=== PATIENT | female | born 1970 | race Caucasian/White ===

== ENCOUNTER 2017-02-20 17:26 | Inpatient (IN) | payer OTHER, MEDICAID ==
[2017-02-20] MEDS ORDERED: NS 1,000 ML IV ONE (17:37)
--- NOTE | 2017-02-20 17:44 | EDPHY ---
H & P Time Seen by Provider: 02/20/17 17:32 HPI/ROS: CHIEF COMPLAINT: Altered mental status HISTORY OF PRESENT ILLNESS: The patient is a 46-year-old female who is brought by EMS for decreased mental status. She has a history of poorly-controlled diabetes she is on metformin and Glucophage. She was somnolecent and found to have a glucose in the 20s. Her mental status improved after an amp of D50 and her the most recent blood glucose was 60. She is afebrile. According to EMS she lives in a recliner on her patio. She has been sitting in feces and has a stage II decubitus ulcer to her left hip. She also complains that she needs to urinate. She denies being in any pain but also answers inappropriately to most questions. She is oriented to person but not place or time. REVIEW OF SYSTEMS: Unable to obtain secondary to condition EXAM: GENERAL: Confused, obese HEAD: Atraumatic, normocephalic. EYES: Pupils equal round and reactive to light, extraocular movements intact, sclera anicteric, conjunctiva are normal. ENT: TMs normal, nares patent, oropharynx clear without exudates. Moist mucous membranes. NECK: Normal range of motion, supple without lymphadenopathy or JVD. LUNGS: Breath sounds clear to auscultation bilaterally and equal. No wheezes rales or rhonchi. HEART: Regular rate and rhythm without murmurs, rubs or gallops. ABDOMEN: Soft, nontender, normoactive bowel sounds. No guarding, no rebound. No masses appreciated. BACK: No CVA tenderness, no spinal tenderness, step-offs or deformities EXTREMITIES: Normal range of motion, no pitting or edema. No clubbing or cyanosis. NEUROLOGICAL: Cranial nerves II through XII grossly intact. Normal speech, normal gait. 5/5 strength, normal movement in all extremities, normal sensation PSYCH: Pleasant SKIN: Healing chronic wound to left foot, states she decubitus left hip Source: Patient Exam Limitations: No limitations - Medical/Surgical History Hx Asthma: No Hx Chronic Respiratory Disease: No Hx Diabetes: Yes Hx Cardiac Disease: No Hx Renal Disease: No Other PMH: Hypertension, chronic pain - Family History Significant Family History: No pertinent family hx - Social History Smoking Status: Former smoker Alcohol Use: Sober Drug Use: None Constitutional: Initial Vital Signs Temperature (C) 36.8 C 02/20/17 17:53 Heart Rate 94 02/20/17 17:53 Respiratory Rate 16 02/20/17 17:53 Blood Pressure 172/102 H 02/20/17 17:53 O2 Sat (%) 98 02/20/17 17:53 O2 Delivery Mode Nasal Cannula O2 (L/minute) 2 Allergies/Adverse Reactions: No Known Allergies Allergy (Unverified 02/20/17 21:39) Home Medications: Medication Instructions Recorded Lisinopril [Zestril 20 mg (*)] 20 mg PO DAILY 02/20/17 Metformin HCl [Metformin 1000 mg] 1,000 mg PO BID 02/20/17 glyBURIDE [Glyburide] 5 mg PO DAILY 02/20/17 Medical Decision Making ED Course/Re-evaluation: In reviewing her medications we found that her 15 mg morphine IR bottle was empty. It was filled on March 15 of this year with 120 tablets. 6:20 p.m. after cleaning the patient up she has several other stage 2-3 decubitus ulcers to her sacrum. 7:20 p.m. the patient's family seem surprised that her morphine IR bottle is empty. They state that it could be in the pill distribution box however the other pill bottles are full. It sounds as though the person who typically gives her her medications as been in penitentiary for the last 2 days. Also the patient continues to be confused. She is definitely alert and interactive but is now accusing the nursing staff a being mean to her and making her cold. She then accused me of being mean to her, giving her a purple pill and spanking her. The patient's family thought this was funny. I had to ask them to be series for moment and spoke about her hypoglycemia, potential opiate abuse or overdose or other causes for altered mental status including her decubitus ulcers covered in feces. I then spoke with Dr. Marcia Pascual who will admit to the hospitalist service. The patient may have a sulfonylurea overdose however her recent glucoses have been within normal limits in even increasing prior to treatment. I will start her on an antibiotic. She does not meet sepsis criteria. Differential Diagnosis: Partial list of the Differential diagnosis considered include but were not limited to; hypoglycemia, sulfonaurea overdose, morphine overdose, sepsis and although unlikely based on the history and physical exam, I also considered pneumonia, CVA, intracranial hemorrhage. Critical Care Time: Critical care time spent by me, Dr. Boggs exclusive with this patient was 45 minutes, exclusive of the PA time exclusive of procedures. The organ system that was at risk was cardiovascular and I gave IV fluids, glucose monitoring, admission, testing and discussions with family to prevent worsening of the patient's condition - Data Points Laboratory Results: Laboratory Results 02/20/17 17:49 02/20/17 17:49 Medications Given: Discontinued Medications Dextrose (D10w) 1,000 mls @ 100 mls/hr IV CONT SADIA Stop: 08/19/17 17:44 Last Admin: 02/20/17 19:19 Dose: Not Given Sodium Chloride (Ns) 1,000 mls @ 0 mls/hr IV ONCE ONE; Wide Open PRN Reason: Protocol Stop: 02/20/17 17:38 Last Admin: 02/20/17 18:49 Dose: 1,000 mls Dextrose (D5w) 250 mls @ 0 mls/hr IV ONCE ONE PRN Reason: Wide Open Stop: 02/20/17 18:31 Last Admin: 02/20/17 18:30 Dose: 250 mls Departure - Departure Disposition: [facility] Inpatient Acute Clinical Impression: Hypoglycemia Decubitus ulcer Qualifiers: Pressure ulcer location: sacral region Pressure ulcer stage: stage 2 Qualified Code(s): L89.152 - Pressure ulcer of sacral region, stage 2 Altered mental status Qualifiers: Altered mental status type: disorientation Qualified Code(s): R41.0 - Disorientation, unspecified Failure to thrive Qualifiers: Failure to thrive age range: in adult Qualified Code(s): R62.7 - Adult failure to thrive Condition: Fair
[2017-02-20] MEDS ORDERED: D10W 1,000 ML IV SCH (17:45)
[2017-02-20 17:54] LABS: % IMMATURE GRANULYOCYTES 0.9 % (0.0-1.1); ABSOLUTE IMMATURE GRANULOCYTES 0.12 10^3/uL (0.00-0.10); ABSOLUTE NRBC COUNT 0.02 10^3/uL (0-0.01); ADD DIFF? NO; ADD MORPH? NO; ADD SCAN? NO; ATYPICAL LYMPHOCYTE FLAG 0 (0-99); FRAGMENT RBC FLAG 0 (0-99); HEMATOCRIT 43.3 % (38.0-47.0); LEFT SHIFT FLG 0 (0-99); LIPEMIA HEMOLYSIS FLAG 80 (0-99); MEAN CELL HEMOGLOBIN 30.2 pg (27.9-34.1); MEAN CELL HEMOGLOBIN CONCENTR. 32.3 g/dL (32.4-36.7); MEAN CELL VOLUME 93.5 fL (81.5-99.8); MEAN PLATELET VOLUME 10.6 fL (8.7-11.7); NRBC-AUTO% 0.2 % (0.0-0.2); PLATELET CLUMPS FLAG 0 (0-99); PLATELET COUNT 264 10^3/uL (150-400); RED BLOOD CELL COUNT 4.63 10^6/uL (4.18-5.33); RED CELL DISTRIBUTION WIDTH 15.8 % (11.5-15.2)
[2017-02-20 18:03] LABS: ANION GAP 8 mEq/L (8-16); BILIRUBIN,TOTAL 0.5 mg/dL (0.1-1.4); CALCIUM 8.8 mg/dL (8.5-10.4); CARBON DIOXIDE 24 mEq/l (22-31); CHLORIDE 105 mEq/L (97-110); CREATININE 0.7 mg/dL (0.6-1.0); GLOMERULAR FILTRATION RATE > 60; GLUCOSE 135 mg/dL (70-100); POTASSIUM 4.7 mEq/L (3.5-5.2); SODIUM 137 mEq/L (134-144)
[2017-02-20 18:04] LABS: APTT 27.7 SEC (23.0-38.0); INR 0.99 (0.83-1.16)
[2017-02-20] MEDS ORDERED: D5W 250 ML IV ONE (18:30)
[2017-02-20 18:47] LABS: COLOR YELLOW; LEUKOCYTE ESTERASE,URINE NEGATIVE (NEGATIVE); NITRITE,URINE NEGATIVE (NEGATIVE)
[2017-02-20] MEDS ORDERED: ONDANSETRON DISINTEGRATING 4 MG TAB PO PRN (23:33)
[2017-02-20] MEDS ORDERED: ACETAMINOPHEN 325 MG TAB PO PRN (23:33)
[2017-02-20] MEDS ORDERED: ONDANSETRON 4 MG/2 ML VIAL IVP PRN (23:33)
[2017-02-20] MEDS ORDERED: NS 1,000 ML IV SCH (23:45)
--- NOTE | 2017-02-21 00:45 | GHP ---
[f rep st] HISTORY AND PHYSICAL DATE OF ADMISSION: 02/20/2017 CHIEF COMPLAINT: Altered mental status. HISTORY OF PRESENT ILLNESS: This is a 46-year-old female who is quite confused, and so history is o btained from chart. Apparently, she has also not been to this hospital before. She has a history o f type 2 diabetes, and is on metformin and sulfonylurea. She was found to be somnolent today, with a glucose in the 20s. Her mental status improved, although she is still fairly confused. According to her EMS, she lives in a recliner on her patio, and has been sitting in feces, and had a decubitu s ulcer to her left hip. My interview, she answered no to almost every single question, and is not able to elaborate on any questions. She is not oriented. Apparently, she is also on MS Contin, and an empty bottle was found that was just recently filled a week ago. Apparently, the person who giv es her that medication has been in longterm. PAST MEDICAL HISTORY: Type 2 diabetes, hypertension, some type of chronic pain syndrome. SOCIAL HISTORY: Unknown. FAMILY HISTORY: Unknown. PHYSICAL EXAM: VITAL SIGNS: Afebrile. Blood pressure is 115/79, heart rate in the 90s, oxygen sat uration 96% on room air. GENERAL: The patient is well developed, no apparent distress. HEENT: No nicteric sclerae. Extraocular muscles intact. Moist mucous membranes. NECK: Supple. No thyromeg simone. LUNGS: Good effort. Clear to auscultation bilaterally. CARDIOVASCULAR: Regular rate and rh ythm. No murmurs, gallops. ABDOMEN: Positive bowel sounds. Soft, nontender, nondistended. No he patosplenomegaly. EXTREMITIES: No clubbing, cyanosis, or edema. SKIN: Without rash, are intact. NEUROLOGIC: Awake, but is not answering questions appropriately, is moving all 4 extremities equal ly. LABORATORIES: White blood cell count is 13. Lactic acid is normal. Chemistry is normal. UA does not show infection. Chest x-ray is personally reviewed and interpreted, shows no pneumonia. ASSESSMENT: This is a 46-year-old female presenting with encephalopathy of uncertain etiology. PLAN: 1. Altered mental status. I suspect this is medication related. There are no signs of infection a t this time. We will watch her overnight, and see what her mental status does in the morning. 2. Hypoglycemia. This is likely due to her sulfonylurea. We will hold her diabetic medications, a nd monitor her blood sugars. 3. Questionable chronic pain. I am not sure why she is on MS Contin. 4. Sacral decubitus ulcer. We will have Wound Care see the patient. /[id number]/MODL
[2017-02-21 05:51] LABS: % IMMATURE GRANULYOCYTES 0.7 % (0.0-1.1); ADD DIFF? NO; ADD MORPH? NO; ADD SCAN? NO; ATYPICAL LYMPHOCYTE FLAG 0 (0-99); FRAGMENT RBC FLAG 0 (0-99); HEMATOCRIT 37.3 % (38.0-47.0); LEFT SHIFT FLG 0 (0-99); LIPEMIA HEMOLYSIS FLAG 80 (0-99); MEAN CELL HEMOGLOBIN 29.4 pg (27.9-34.1); MEAN CELL HEMOGLOBIN CONCENTR. 32.2 g/dL (32.4-36.7); MEAN CELL VOLUME 91.4 fL (81.5-99.8); MEAN PLATELET VOLUME 10.8 fL (8.7-11.7); PLATELET CLUMPS FLAG 10 (0-99); PLATELET COUNT 280 10^3/uL (150-400); RED BLOOD CELL COUNT 4.08 10^6/uL (4.18-5.33); RED CELL DISTRIBUTION WIDTH 15.4 % (11.5-15.2)
[2017-02-21] MEDS: ENOXAPARIN 40 MG/0.4 ML SYR SC SCH (08:58)
[2017-02-21] MEDS: LISINOPRIL 20 MG TAB PO SCH (08:58)
[2017-02-21 09:53] LABS: ALANINE AMINOTRANSFERASE 22 IU/L (9-52); ALBUMIN 2.9 g/dL (3.5-5.0); ALKALINE PHOSPHATASE 82 IU/L (38-126); ANION GAP 9 mEq/L (8-16); ASPARTATE AMINOTRANSFERASE 26 IU/L (14-46); BILIRUBIN,TOTAL 0.7 mg/dL (0.1-1.4); CALCIUM 8.9 mg/dL (8.5-10.4); CARBON DIOXIDE 18 mEq/l (22-31); CHLORIDE 110 mEq/L (97-110); CREATININE 0.7 mg/dL (0.6-1.0); GLOMERULAR FILTRATION RATE > 60; GLUCOSE 84 mg/dL (70-100); POTASSIUM 4.6 mEq/L (3.5-5.2); SODIUM 137 mEq/L (134-144); TOTAL PROTEIN 6.1 g/dL (6.3-8.2)
--- NOTE | 2017-02-21 10:23 | HOSPPROG ---
Hospitalist Progress Note Assessment/Plan: Patient is a 46 y/o female who was admitted for AMS. Today is my first encounter with the patient/ chart reviewed. *Acute encephalopathy/AMS suspect secondary from low glucoses also is on long acting morphine she is still a bit off/ but has no focal neuro deficits *Leukocytosis suspect stress induced *hypoglycemia reviewed with patient and son s/sx her sonmiah need to know how to check her glucoses in an emergency *Diabetes will resume metformin this evening/hold sulfonylurea glucose checks qAC and HS for close monitoring/also, sliding scale *chronic pain on chronic/continuous opioids after surgeries causing this will not resume MS contin will order prn oxy to avoid withdrawals there was concern she took too many MS Contin/ per the son, she has 96 left at home/took them out of original bottle *uncontrolled htn lisinopril resumed prn hydralazine *DVT prophylaxis lmwh *Plan: ask ST to do a cognitive evaluation, PT and OT to see/ should be able to go home tomorrow if stable Subjective: Ondina has no complaints. Objective: Vital Signs Temp Pulse Resp BP Pulse Ox 37.1 C 99 18 185/116 H 97 02/21/17 08:00 02/21/17 08:00 02/21/17 08:00 02/21/17 08:00 02/21/17 08:00 Laboratory Results 02/21/17 05:36 02/21/17 05:36 02/20/17 02/21/17 02/22/17 05:59 05:59 05:59 Intake Total 1786 Balance 1786 PT 13.0 SEC (12.0-15.0) 02/20/17 17:49 INR 0.99 (0.83-1.16) 02/20/17 17:49 - Physical Exam Constitutional: no apparent distress, appears nourished, not in pain Eyes: PERRL Ears, Nose, Mouth, Throat: hearing normal Cardiovascular: regular rate and rhythym Respiratory: no respiratory distress Gastrointestinal: normoactive bowel sounds Skin: warm Musculoskeletal: full muscle strength Neurologic: other (alert and oriented to person, not to place or time or situation. Answers other questions appropriately.) Psychiatric: interacting appropriately, thought process linear ICD10 Worksheet Patient Problems: Problems Problem Status Onset Altered mental status Acute Decubitus ulcer Acute Failure to thrive Acute Hypoglycemia Acute
[2017-02-21] MEDS ORDERED: D50W 25 GM/50 ML SYR IVP PRN (10:43)
[2017-02-21] MEDS: INSULIN LISPRO 100 UNIT/ML SC SCH ×2 (12:17→18:17)
[2017-02-21] MEDS: hydrALAZINE 10 MG TAB PO PRN ×2 (12:56→22:37)
[2017-02-21] MEDS: oxyCODONE IR 5 MG TAB PO PRN ×2 (13:51→22:37)
--- NOTE | 2017-02-21 17:45 | WOCRNPDOC ---
ANGELICA Advanced Assessment Note - Skin Integrity Problem, Advanced Assess Left Hip Pressure Injury Dressing Type: Allevyn Life Dressing Description: Intact Exudate Amount: Minimal Exudate Color: Yellow, Red Exudate Characteristic(s): Serosanguinous Integumentary Issue Intervention: Dressing Changed (Cavilon protectant and new Allevyn), Dressing Initialed & Dated, Silver Gel Applied Katlin Wound Tissue: Erythema, Non-blanching, Indurated, Painful/Tender Katlin Wound Swelling: Mild Wound Bed Color: [place], Yellow Wound Bed Constitution: Granulation Tissue, Smooth Tissue, Adhered Slough (50%) Wound Edges: Attached, Irregular Site Odor: None Site Measurement - Head-to-Toe Length X Width X Depth (cm): 2 x 2.5 x adhered slough Pressure Injury Stage: Unstageable Pressure Injury Present on Admit: Yes (documented by Dr. Ria) Skin Integrity Problem Comment: Unstageable injury, reported by Dr. Rai to be 2/2 patient "living in recliner" at home. Discussed having surgery weigh in re possibility of surgical debridement of hip, sacrum, and left toe ulcers with Hospitalist Rufina Eubanks. Placed provisional dressings pending surgery consult. Will follow up tomorrow, 02/22. Report to RAHEEL Wilson. Bilateral Sacrum Pressure Injury Dressing Type: Allevyn Life Dressing Description: Not Intact (rolled), Shadowed Exudate Amount: Moderate Exudate Color: Yellow, Red Exudate Characteristic(s): Serosanguinous Integumentary Issue Intervention: Dressing Changed (Cavilon periwound prep and Allevyn sacrum), Dressing Initialed & Dated, Silver Gel Applied Katlin Wound Tissue: Erythema, Non-blanching, Raw, Swollen, Scaly, Scarred, Painful/Tender Katlin Wound Swelling: Mild Wound Bed Color: Brown, [place], Yellow Wound Bed Constitution: Smooth Tissue, Adhered Slough (65%) Wound Edges: Attached, Irregular, Scarred Site Odor: None Site Measurement - Head-to-Toe Length X Width X Depth (cm): 3 x 3.5 x adhered slough Pressure Injury Stage: Unstageable (slough, plus presence of scar tissue (see comment below)) Skin Integrity Problem Comment: Unstageable injury, reported by Dr. Rai to be 2/2 patient "living in recliner" and soiled condition at home. Presence of scar tissue at sacrum injury is also suggestive of past healed injury(ies) of undetermined depth. Provided provisional care to this site pending surgical consult, as described above. Patient is somewhat agitated during assessments and in general at this time, actively moving and turning self in bed, as well as getting in and out of bed independently, however have activated turn q2h reminders to have patient off-load pressure injuries when in bed. Left Distal Toes Diabetic Ulcers Dressing Type: Open to Air Exudate Amount: None Integumentary Issue Intervention: Dressing Applied (gauze and lian), Dressing Initialed & Dated, Silver Gel Applied Katlin Wound Tissue: Erythema, Hot, Swollen, Indurated, Taught, Altered Sensitivity (c/o neuropathy), Painful/Tender Katlin Wound Swelling: Moderate Wound Bed Color: Brown Wound Bed Constitution: Dried Exudate, Adhered Slough Wound Edges: Attached, Well Defined Site Odor: None Site Measurement - Head-to-Toe Length X Width X Depth (cm): 2 x 2 x 0 (dried adhered slough vs eschar) @ great toe. 0.2 x 0.5 x 0 (dried adhered slough vs eschar) @ 3rd toe. 0.2 x 0 (dried adhered slough vs eschar) @ 4th toe Skin Integrity Problem Comment: Thick pad of dried slough vs eschar is 100% occluding bases of ulcers at distal toes. Unable to determine whether any fluctuance is present at periwound tissue, as patient is unable to tolerate touch at intact tissue of digits. Swollen, erythemic appearance along all digits from distal surfaces to metatarsals. Placed provisional dressing pending surgical consult, as described above.
[2017-02-21] MEDS ORDERED: metFORMIN HCL 500 MG TAB PO SCH (18:00)
--- NOTE | 2017-02-21 18:08 | GCON ---
[f rep st] CONSULTATION INFECTIOUS DISEASE CONSULTATION DATE OF CONSULTATION: 02/21/2017 REFERRING PHYSICIAN: Chloe Eubanks NP REASON FOR CONSULTATION: Left great toe ulceration with concern for possible osteomyelitis. HISTORY OF PRESENT ILLNESS: Patient is a 46-year-old female with a past medical history of type 2 d iabetes, who was admitted yesterday with confusion and found to have a glucose in the 20 range. The patient describes having banged her left foot on the door approximately 4 weeks ago, resulting in t oe fractures, as well as a sore on the great toe. She describes this as slowly improving. There is some associated tenderness. She does not describe having peripheral neuropathy. She was noted by Wound Care today to have an ulceration over the tip of the great toe with surrounding erythema. She also was noted to have decubitus ulcers over the sacrum and left ischial region. The patient does describe having some recent diarrhea. She does not describe being bedbound. She states that she to ok too much of her metformin yesterday, but this was not purposeful. Given the ulceration, I am now asked to assist in her ongoing management to assess for possibility of skin and soft tissue infecti on, as well as osteomyelitis. PAST MEDICAL HISTORY: Type 2 diabetes, hypertension, chronic pain. PAST SURGICAL HISTORY: Wrist surgery, shoulder surgery, cholecystectomy. CURRENT MEDICATIONS: Lovenox 40 mg subcu daily, Humalog insulin sliding scale with meals, lisinopri l 20 mg p.o. daily, Oxy IR as needed for pain. ALLERGIES: No known drug allergies. SOCIAL HISTORY: The patient is living with her son. She notes that he is going to be her caregiver . Patient is a former smoker. FAMILY HISTORY: Noncontributory. REVIEW OF SYSTEMS: Outside that noted in the HPI, remainder of a 10-system review is unremarkable; patient is adamant that she wants to leave the hospital no later than tomorrow. PHYSICAL EXAMINATION: VITAL SIGNS: Temperature 37.4, heart rate 101, respiratory rate 18, blood pr essure 154/100. GENERAL: Patient is a thin female, in no acute distress. She appears nontoxic. H EENT: There is no scleral icterus, conjunctival injection, or conjunctival petechiae. Oropharynx i s clear without lesions. Mucous membranes are moist. Dentition is in poor repair. There is no mirtha al discharge. There is no tenderness over the frontal, maxillary or mastoid area. NECK: Supple wi thout palpable lymphadenopathy or thyromegaly. CHEST: Clear to auscultation bilaterally without ad ventitious sounds. The respiratory effort is normal. CARDIOVASCULAR: Regular rate and rhythm with out murmurs, gallops, or rubs. ABDOMEN: Soft, nontender, nondistended. There is no palpable organ omegaly. Bowel sounds are present. Right upper quadrant scar consistent with prior cholecystectomy . MUSCULOSKELETAL: Left great toe shows ulceration over the entirety of the tip of the digits; ther e is surrounding hyperemia over the toe, without significant tenderness or warmth. She has a dorsal is pedis pulse. No erythema over the foot. SKIN: See musculoskeletal; there is a shallow decubitu s ulceration over the sacrum which is in 2 discontinuous portions, as well as a decubitus ulceration over the left hip; there is some shoemaker overlying fibrinous slough in both regions. There are no sti gmata of endocarditis. The skin is warm and dry to touch. NEUROLOGIC: Patient is alert, and inter acts appropriately with the examiner. She has mild agitation. She repeats frequently that she will not remain hospitalized beyond tomorrow. PSYCHIATRIC: See above discussion. LYMPHATICS: No cerv ical or supraclavicular nodes. No lymphangitis in the left lower extremity. LABORATORY DATA: White blood cell count 13.7, hematocrit 37.3, platelets 280, neutrophils 72%. Ser um creatinine is 0.7. AST 26, ALT 22, alkaline phosphatase 82, bilirubin 0.7, albumin 2.9. Venous lactate is 1.3. INR 0.99. Chest x-ray shows no evidence of pneumonia. IMPRESSION: 1. Left great toe ulceration with underlying diabetes: Given the chronicity of the ulceration, the re is concern for possibility of underlying osteomyelitis of the distal toe. Erythema present on ex am is consistent with hyperemia rather than cellulitis. Will proceed with plain film as initial ass essment to assess for bony erosions. If this is normal, would proceed with MRI to further assess fo r osteomyelitis. 2. Decubitus ulcerations: No signs or symptoms of infection. Continued local wound care. RECOMMENDATIONS: 1. Plain film of left foot. 2. MRI of the foot if plain film unrevealing. 3. Observe off antibiotics. 4. Continue local wound care. Thank you for this consultation. We will continue to follow the patient with you. /[id number]/MODL
[2017-02-21] MEDS ORDERED: NON-FORMULARY NEW DRUG (Metformin Hcl [Metformin 1000 Mg] 1,000 MG) PO SCH (21:00)
--- NOTE | 2017-02-21 23:13 | SOAPPROG ---
SOAP Progress Note Assessment/Plan: Assessment: 46-YEAR-OLD FEMALE DIABETIC WITH NEUROPATHY / HAS TO SEE HER FOR TOE ULCERATIONS SHE HAS FULL DISTAL PULSES / HER LEFT GREAT TOE HAS A 1/2 CM SCAB ON THE END AND HER LEFT 3RD TOE HAS A SMALL 4 MM SCAB ON SHE DOES HAVE SENSATION FOOT X-RAYS NEGATIVE FOR OSTEO / SHE IS AFEBRILE / NO OBVIOUS SIGNS OF INFECTION OR DRAINAGE Plan: NO NEED FOR DEBRIDEMENT OR FURTHER TREATMENT / THESE ULCERATIONS ARE DRY AND CLEAN AND I WOULD LEAVE THEM ALONE / AVOID TRAUMA TO THE ENDS OF THE TOES OR ANY SORT OF PRESSURE SITUATION WAS HER SHOES / WILL FOLLOW UP IN THE NEXT 2 WEEKS HAS AN OUT PATIENT 02/21/17 23:10 Objective: Vital Signs Temp Pulse Resp BP Pulse Ox 36.9 C 91 15 162/103 H 98 02/21/17 20:00 02/21/17 16:00 02/21/17 20:00 02/21/17 20:00 02/21/17 16:00 Laboratory Results 02/21/17 05:36 02/21/17 05:36 02/20/17 02/21/17 02/22/17 05:59 05:59 05:59 Intake Total 1786 1200 Balance 1786 1200 PT 13.0 SEC (12.0-15.0) 02/20/17 17:49 INR 0.99 (0.83-1.16) 02/20/17 17:49 ICD10 Worksheet Patient Problems: Problems Problem Status Onset Altered mental status Acute Decubitus ulcer Acute Failure to thrive Acute Hypoglycemia Acute
[2017-02-21 23:59] VITALS: O2SAT 96
[2017-02-22] MEDS: oxyCODONE IR 5 MG TAB PO PRN ×2 (04:52→09:24)
[2017-02-22] MEDS: hydrALAZINE 10 MG TAB PO PRN (04:52)
[2017-02-22 05:39] LABS: % IMMATURE GRANULYOCYTES 0.6 % (0.0-1.1); ABSOLUTE IMMATURE GRANULOCYTES 0.09 10^3/uL (0.00-0.10); ADD DIFF? NO; ADD MORPH? NO; ADD SCAN? NO; ATYPICAL LYMPHOCYTE FLAG 0 (0-99); FRAGMENT RBC FLAG 0 (0-99); HEMATOCRIT 43.9 % (38.0-47.0); HEMOGLOBIN 14.5 g/dL (12.6-16.3); LEFT SHIFT FLG 0 (0-99); LIPEMIA HEMOLYSIS FLAG 80 (0-99); MEAN CELL HEMOGLOBIN 29.8 pg (27.9-34.1); MEAN CELL VOLUME 90.1 fL (81.5-99.8); MEAN PLATELET VOLUME 10.9 fL (8.7-11.7); PLATELET CLUMPS FLAG 0 (0-99); PLATELET COUNT 287 10^3/uL (150-400); RED BLOOD CELL COUNT 4.87 10^6/uL (4.18-5.33); RED CELL DISTRIBUTION WIDTH 15.3 % (11.5-15.2)
[2017-02-22 06:17] LABS: ANION GAP 13 mEq/L (8-16); CALCIUM 9.8 mg/dL (8.5-10.4); CARBON DIOXIDE 17 mEq/l (22-31); CHLORIDE 108 mEq/L (97-110); CREATININE 0.6 mg/dL (0.6-1.0); GLOMERULAR FILTRATION RATE > 60; GLUCOSE 132 mg/dL (70-100); SODIUM 138 mEq/L (134-144)
--- NOTE | 2017-02-22 09:02 | WOCRNPDOC ---
ANGELICA Advanced Assessment Note - Skin Integrity Problem, Advanced Assess Left Hip Dressing Type: Allevyn Life Dressing Description: Intact Exudate Amount: Scant Exudate Color: Reddish/Yellow Exudate Characteristic(s): Serosanguinous Integumentary Issue Intervention: Visualized Under Dressing Kedar Wound Tissue: Blanching, Erythema Kedar Wound Swelling: Mild Wound Bed Color: Red, Yellow Wound Bed Constitution: Granulation Tissue, Smooth Tissue, Adhered Slough Wound Edges: Attached Site Odor: None Site Measurement - Head-to-Toe Length X Width X Depth (cm): 2.1cmx2.5cmx slough Pressure Injury Stage: Unstageable Pressure Injury Present on Admit: Yes (Documented in H&P) Skin Integrity Problem Comment: Full-thickness, slough-filled wound noted to L hip, consistent w/ unstageable pressure injury. Mild kedar-wound erythema and associated swelling noted. Discussed initiating autolytic debridement of this wound w/ patient and son. Patient is adamant that she will DC today, despite concerns about her BP. Pressure-relieving interventions initiated upon admission , however patient is alert and ambulatory, making it unlikley that she will need nursing to turn her q2. Reiterated importance of off-loading this site, and following up w/ physician outpatient to monitor these wounds. Will initiate Therahoney gel today and foam dressing. Wound care instructions provided to son , and report given to job analyst Shereen. Bilateral Sacrum Pressure Injury Dressing Type: Allevyn Life Dressing Description: Not Intact Exudate Amount: Minimal Exudate Color: Reddish/Yellow Exudate Characteristic(s): Serosanguinous Integumentary Issue Intervention: Visualized Under Dressing Kedar Wound Tissue: Blanching, Erythema, Denuded, Painful/Tender Kedar Wound Swelling: Mild Wound Bed Color: Red, Yellow Wound Bed Constitution: Smooth Tissue, Adhered Slough Wound Edges: Attached Site Odor: None Site Measurement - Head-to-Toe Length X Width X Depth (cm): 3cmx3.4cmx slough Pressure Injury Stage: Unstageable Pressure Injury Present on Admit: Yes (Documented in H&P) Skin Integrity Problem Comment: Full-thickness, slough-filled wound noted to lower sacrum, consistent in appearance w/ unstageable pressure injury. In addition, there is raw, denuded tissue kedar-wound, which is indicative of breakdown r/t exposure to urine/stool. Per patient report, her son found her unconscious in her recliner and she had "soiled herself." Unable to state the length of time she was in this state. Spoke with her about the need to off-load this site and to follow up in the outpatient setting with a physician. She was given a pressure-relieving waffle cushion to take home with her, and her sone was given wound care instructions.
[2017-02-22] MEDS: INSULIN LISPRO 100 UNIT/ML SC SCH ×3 (09:11→13:38)
[2017-02-22] MEDS: LISINOPRIL 20 MG TAB PO SCH (09:12)
[2017-02-22] MEDS: ENOXAPARIN 40 MG/0.4 ML SYR SC SCH (09:13)
[2017-02-22] MEDS ORDERED: amLODIPine BESYLATE 5 MG TAB PO SCH (10:30)
--- NOTE | 2017-02-22 10:53 | PDIAF ---
- Diagnosis Diagnosis: hypoglycemia Code Status: Full Code - Medication Management Discharge Medications: Medications to Continue on Transfer Lisinopril [Zestril 20 mg (*)] 20 mg PO DAILY 02/20/17 [Last Taken 02/20/17] Metformin HCl [Metformin 1000 mg] 1,000 mg PO BID 02/20/17 [Last Taken 02/20/17 1 tab] Acetaminophen [Tylenol 325mg (*)] 650 mg PO Q4HRS PRN #0 tab 02/22/17 [Last Taken Unknown] amLODIPine BESYLATE [Norvasc 5 mg (*)] 5 mg PO DAILY #30 tab 02/22/17 [Last Taken Unknown] oxyCODONE IR [Oxycodone Ir (*)] 5 - 10 mg PO Q4HRS PRN #10 tab 02/22/17 [Last Taken Unknown] Discharge Medications: Refer to the Discharge Home Medication list for PRN reason. PICC Care - Routine: N/A - Orders Services needed: Home Care, Registered Nurse, Physical Therapy Home Care Face to Face: I certify that this patient was under my care and that I had the required [id number] encounter meeting the encounter requirements on the discharge day. My findings support the fact that the patient is homebound as defined in CMS Chapter 7 Medicare Benefits Manual 30.1.1, The condition of the patient is such that there exists a normal inability to leave home and consequently, leaving home would require a considerable and taxing effort. Diet Recommendation: ADA 1800 consistent carb - Follow Up Care Current Providers and Referrals: Patient,NotPresent [Unknown] - As per Instructions
[2017-02-22] MEDS ORDERED: metFORMIN HCL 500 MG TAB PO SCH ×2 (12:45→18:00)
[2017-02-22 12:47] VITALS: BP 153/109; PULSE 110; RESP 16; TEMP 98.7
--- NOTE | 2017-02-22 16:10 | GDS ---
[f rep st] DISCHARGE SUMMARY DISCHARGE DIAGNOSES: 1. Acute encephalopathy, likely secondary to hypoglycemia. 2. Leukocytosis. 3. Hypoglycemia. 4. Diabetes mellitus. 5. Chronic pain, on chronic continuous opioids. 6. Uncontrolled hypertension. CONSULTATIONS: Infectious Disease. STUDIES AND PROCEDURES: 1. Foot x-ray. 2. Wound care. PHYSICAL EXAM: GENERAL: The patient is alert. VITAL SIGNS: Afebrile at 37.1. Pulse is 100. Res piratory rate is 16. Blood pressure is 153/109. She is saturating 96% on room air. I have seen an d evaluated the patient on the day of discharge. HOSPITAL COURSE: The patient is a 46-year-old female who presented to the emergency room with alter ed mental status. She was evaluated and diagnosed with: 1. Acute encephalopathy. This is felt likely secondary to hypoglycemia as well as long-acting narc otic medications. Her condition has resolved and she is mentating appropriately. 2. Hypoglycemia. I have discontinued the patient's glyburide. I have reinitiated her metformin an d she has family instructed how to check her glucose in the outpatient setting. 3. Diabetes. Again, the patient's metformin will be reinitiated and her glyburide will be disconti nued. It is likely that she will require insulin in the future. 4. Chronic pain, on continuous opioids. I have not resumed her long-acting MS Contin at the time o f disposition. She has also reinitiated her other narcotic medications. 5. Uncontrolled hypertension. I have discussed this with the patient. I have added Norvasc 5 mg d aily as well as continuation of her lisinopril 20 mg daily. I have educated her that she needs to f ollow up with her primary care physician. She tells me she has an appointment on March 10 with her primary care physician. I have instructed her that I would like to increase her antihypertensive m edications further. However, she is refusing at this time and wishes to defer to her primary care p efren. She does understand that this is a potential complication and health risk to have uncontr olled hypertension, and she has received education regarding this. 6. Left big toe infection. She did receive a consultation from Dr. Flores of Infectious Disease. An x-ray was performed that did not indicate osteomyelitis. An MRI was ordered; however, the patient has refused MRI. She did receive wound care and will remain off antibiotic therapy at this time. A consultation was also performed by Dr. Robert De La Torre of surgery with no recommendations for surgica l intervention at this time. The patient also has a notable decubitus on her coccyx area and will r equire home RN for wound care. DISPOSITION: The patient will be discharged home with home health PT and RN. I have educated the p atient with regard to her blood glucose as well as her hypertension and her multiple skin wounds. S he understands that these require significant followup in the outpatient setting. I reviewed her ca re with the shelter case manager as well as the nurse. DISCHARGE MEDICATIONS: Please refer to EMR form. I have not reinitiated the patient's glyburide or her long-acting MS Contin. I spent greater than 35 minutes in the care, coordination, and management of this patient's disposit ion. /[id number]/MODL
== END 2017-02-22 13:55 | disposition home health service (06) | DRG 639 ==
LOC: EDUNIT# → OBSVTOIN 19:26 → F3N 20:58
PROVIDERS: ADMIT Internal Medicine; ATTEND Internal Medicine
DX: E11.649 Type 2 diabetes mellitus with hypoglycemia without coma (principal); G89.29 Other chronic pain; F11.90 Opioid use, unspecified, uncomplicated; I10 Essential (primary) hypertension; L89.220 Pressure ulcer of left hip, unstageable; L89.150 Pressure ulcer of sacral region, unstageable; E11.621 Type 2 diabetes mellitus with foot ulcer; L97.529 Non-pressure chronic ulcer of other part of left foot with unspecified severity
CPT/HCPCS: 82947-QW; 92523-GN; 96365; 97116-GP; 97161-GP; 97165-GO; 97535-GO; G8978-GP-CK; G8979-GP-CI; G8980-GP-CI; G8987-GO-CJ; G8988-GO-CI; G9168-GN-CJ; G9169-GN-CJ; G9170-GN-CJ; J1650; J1815